=== PATIENT | male | born 1945 | race African-American/Black ===

== ENCOUNTER → 2016-11-20 | Outpatient (CLI) | payer OTHER ==
[~2016-11-20] MED LIST: ASPI325T PO; LEVA500T33 PO; LISI2.5T55 PO; METO25 PO; NITR.4T TD; NITR0.4S SL
--- NOTE | 2016-11-24 11:08 | RSPPFT ---
DATE OF PROCEDURE: 11/20/16 COMMENTS: Spirometry shows FVC of 2.0 at 52% of predicted, FEV1 of 1.1 at 38%, FEV1/FVC ratio is decreased. Flow is decreased at FEF 25-75. There is a paradoxical response to bronchodilator treatment. Flow volume loop indicates an obstructive pattern. IMPRESSION: 1. Severe obstructive lung disease. 2. Paradoxical response to bronchodilator treatment.
== END ==
LOC: HRSP 10:42
PROVIDERS: ATTEND Specialist
DX: J44.9 Chronic obstructive pulmonary disease, unspecified (principal)
CPT/HCPCS: 94060